=== PATIENT | female | born 1975 | race Caucasian/White ===

== ENCOUNTER → 2022-08-07 12:17 | Outpatient (CLI) | payer SELFPAY ==
--- NOTE | ~2022-08-07 | MMUS_ITS ---
EXAMINATION: MM diagnostic yelitza BI w gabriel, US breast BI complete HISTORY: Increasing size of left breast lump, previously reported as a cyst according to patient TECHNIQUE: Bilateral ML, MLO, CC and rotated lateral CC 3-D tomosynthesis images were performed and s ynthetic 2-D images were generated. CAD analysis was submitted and interpreted. High resolution bilat eral complete breast ultrasound examination including all 4 quadrants and subareolar areas was perfor med. COMPARISON: None BREAST PARENCHYMAL COMPOSITION: The breasts are extremely dense, which lowers the sensitivity of mamm ography. FINDINGS: MAMMOGRAPHIC FINDINGS: Multiple bilateral breast masses are noted, the largest situated in the posterior upper outer left br east, measuring at least 4 cm, with halo sign, likely a benign cyst. Remaining masses appear low-dens ity and circumscribed, suggesting multiple bilateral benign lesions, likely cysts or other benign pro cess(es). The very dense stroma may obscure masses. Bilateral complete breast ultrasound examination was perfor med. No architectural distortion, malignant calcification, skin thickening or retraction of either breast is detected. ULTRASOUND: There are multiple bilateral simple and septated cysts. The largest on the right is situated at 2:00, measuring approximately 11 x 16 x 18 mm, with numerous septations, with through transmission and pos terior enhancement, no internal vascularity. The largest on the left situated at 2:00 6 cm from nipple, corresponding to the large density with [place] sign on the mammogram, measuring up to 3.4 x 4.5 cm, with through transmission posterior enhanceme nt. Multiple additional scattered simple and septated cysts of the left breast are noted. No suspicious mass or shadowing of either breast is evident. IMPRESSION: 1. Benign findings; no mammographic or sonographic evidence of malignancy 2. Routine annual mammographic screening is recommended BI-RADS Category 2: Benign finding(s). Reviewed, dictated and finalized at location A. ETIC RESONANCE IMAGING DIRECTOR IMPRESSION: 1. Benign findings; no mammographic or sonographic evidence of malignancy 2. Routine annual mammographic screening is recommended BI-RADS Category 2: Benign finding(s).
== END ==
PROVIDERS: PCP Obstetrics & Gynecology; Visit Provider Obstetrics & Gynecology
DX: N63.21 Unspecified lump in the left breast, upper outer quadrant (principal); N60.02 Solitary cyst of left breast
CPT/HCPCS: 76641; 77062; 77066; G0279

== ENCOUNTER 2025-01-15 08:32 | Emergency (ER) | payer SELFPAY ==
--- OUTSIDE RECORDS SUMMARY | 2025-01-15 08:37 | XMS_ITS | Clinical Summary ---
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 Gender Identity Not on file Sexual Orientation Not on file Plan of Treatment Health Maintenance Due Date Last Done Comments DTAP/TDAP/TD VACCINES (1 - Tdap) 1996 HEPATITIS B VACCINES (1 of 3 - 19+ 3-dose series) 02/24 HPV/Cotest (21-29) 1998 CERVICAL CANCER SCREENING 2007 HPV/Cotest (30-65) 2007 PAP SMEAR 2007 BREAST CANCER SCREENING 2017 02/09/2014 COLORECTAL SCREENING 2022 Colorectal Cancer Screening 2022 FIT-DNA Q 3 years 2022 FIT/FOBT Q 1 year 2022 Flex Sig/CT Colonography Q 5 years 2022 INFLUENZA VACCINE (#1) 2025 Procedures Procedure Name Priority Date/Time Associated Diagnosis Comments MAMMO DIAGNOSTIC BILATERAL W OR WO CAD Routine 02/09/2014 7:46 AM CDT Galactorrhea not associated with childbirth from Last 3 Months or Most Recently Relevant to Health Maintenance Results * MAMMO DIGITAL DIAG BILAT (02/09/2014 7:46 AM CDT) Anatomical Region Laterality Modality Breast Bilateral Mammography 02/09/2014 7:36 AM CDT Impressions 02/09/2014 11:45 AM CDT IMPRESSION: Right breast: MQSA: Benign findings BI-RADS: 2 Left breast: MQSA: Benign findings BI-RADS: 2 Multiple cysts seen on ultrasound. Extremely dense and nodular bilateral breast parenchyma which limits the sensitivity of the exam to detect abnormality. Clinical followup recommended. Palpable abnormality should be followed on the basis of clinical grounds. Narrative 02/09/2014 11:45 AM CDT SCREENING DIGITAL DIAGNOSTIC BILATERAL MAMMOGRAM WITH CAD ASSISTANCE LEFT BREAST ULTRASOUND HISTORY: Left breast tenderness 4-5 months. Occasional whitish nipple discharge that has decreased after treatment. FINDINGS: Bilateral breast CC, MLO and lateromedial views obtained and compared to previous mammogram on 08/21/2012 read by different radiologist. Extremely dense and nodular bilateral breast parenchyma is noted which limits the sensitivity of the exam to detect abnormality. There is no new dominant mass or architectural distortion. There is no tumoral microcalcification. Left axillary lymph nodes are again seen. There is no skin thickening or nipple retraction. Left breast ultrasound is recommended for further elevation of symptoms. LEFT BREAST ULTRASOUND Left breast ultrasound is performed in clockwise rotation. I was present during ultrasound examination. There is dense breast parenchyma. Multiple small cysts are seen measuring 3 x 3 x 4 mm at 1 o'clock, 3 x 2 x 3 mm at 2 o'clock, 6 x 3 x 4 mm at 3 o'clock, 5 x 2 x 4 mm at 6 o'clock, 7 x 5 x 9 mm at 9 o'clock, 12 x 7 x 20 mm 2 o'clock. The small cysts have increased through transmission and no internal blood flow. I personally examined the hypoechoic structures at 9 o'clock and 2 o'clock and demonstrate increased through transmission, no internal blood flow and are most consistent with cysts and possibly with mild debris. Procedure Note Bakari Mena MD - 02/09/2014 SCREENING DIGITAL DIAGNOSTIC BILATERAL MAMMOGRAM WITH CAD ASSISTANCE LEFT BREAST ULTRASOUND HISTORY: Left breast tenderness 4-5 months. Occasional whitish nipple discharge that has decreased after treatment. FINDINGS: Bilateral breast CC, MLO and lateromedial views obtained and compared to previous mammogram on 08/21/2012 read by different radiologist. Extremely dense and nodular bilateral breast parenchyma is noted which limits the sensitivity of the exam to detect abnormality. There is no new dominant mass or architectural distortion. There is no tumoral microcalcification. Left axillary lymph nodes are again seen. There is no skin thickening or nipple retraction. Left breast ultrasound is recommended for further elevation of symptoms. LEFT BREAST ULTRASOUND Left breast ultrasound is performed in clockwise rotation. I was present during ultrasound examination. There is dense breast parenchyma. Multiple small cysts are seen measuring 3 x 3 x 4 mm at 1 o'clock, 3 x 2 x 3 mm at 2 o'clock, 6 x 3 x 4 mm at 3 o'clock, 5 x 2 x 4 mm at 6 o'clock, 7 x 5 x 9 mm at 9 o'clock, 12 x 7 x 20 mm 2 o'clock. The small cysts have increased through transmission and no internal blood flow. I personally examined the hypoechoic structures at 9 o'clock and 2 o'clock and demonstrate increased through transmission, no internal blood flow and are most consistent with cysts and possibly with mild debris. IMPRESSION IMPRESSION: Right breast: MQSA: Benign findings BI-RADS: 2 Left breast: MQSA: Benign findings BI-RADS: 2 Multiple cysts seen on ultrasound. Extremely dense and nodular bilateral breast parenchyma which limits the sensitivity of the exam to detect abnormality. Clinical followup recommended. Palpable abnormality should be followed on the basis of clinical grounds. us Arnold Wilks MD MAMMO ORDERABLES Final Resul t from Last 3 Months or Most Recently Relevant to Health Maintenance Insurance [id number] Care Teams It Operations Analyst Relationship Specialty Start Date End Date Joseluis Denis DO [address] [address] PCP - General 07/17/13
--- OUTSIDE RECORDS SUMMARY | 2025-01-15 08:39 | XMS_ITS | Clinical Summary ---
Author Organization [facility] Address [address] [place] [id number] Care Team Providers Care Wire Weaving Loom Setter Name Role Phone Veronica Doshi Primary Care Provider [phone] [phone] Allergies No known active allergies Medications No known medications Active Problems Problem Noted Date Diagnosed Date Fibromyalgia 08/12/2019 IBS (irritable bowel syndrome) 08/12/2019 Family History Medical History Relation Comments Allergies Brother No Known Problems Father Breast Cancer Maternal Aunt Hypertension Mother Uterine Cancer Paternal Aunt Relation Status Comments Brother Alive Father Alive Maternal Aunt Alive Mother Alive Paternal Aunt Social History Tobacco Use Types Packs/Day Years Used Date Smoking Tobacco: Never Smokeless Tobacco: Never Alcohol Use Standard Drinks/Week Comments Not Currently 0 (1 standard drink = 0.6 oz pur e alcohol) PHQ-2 Answer Date Recorded PHQ-2 Score 1 08/12/2019 Comments No Sex and Gender Information Value Date Recorded Sex Assigned at Not on file Legal Sex Female 11:45 AM NATIONAL VAN OWNER OPERATOR Gender Identity Not on file Sexual Orientation Not on file Last Filed Vital Signs Vital Sign Reading Time Taken Comments Blood Pressure 122/75 08/12/2019 11:11 AM NATIONAL VAN OWNER OPERATOR Pulse 79 08/12/2019 11:11 AM NATIONAL VAN OWNER OPERATOR Temperature - - Respiratory Rate 19 08/12/2019 11:11 AM NATIONAL VAN OWNER OPERATOR Oxygen Saturation 100% 08/12/2019 11:11 AM NATIONAL VAN OWNER OPERATOR Inhaled Oxygen Concentration - - Weight 57 kg (125 lb 11.2 oz) 08/12/2019 11:11 A M NATIONAL VAN OWNER OPERATOR Height 160 cm (5' 3) 08/12/2019 11:11 AM NATIONAL VAN OWNER OPERATOR Body Mass Index 22.27 08/12/2019 11:11 AM NATIONAL VAN OWNER OPERATOR Plan of Treatment Health Maintenance Due Date Last Done Comments Cervical Cancer Screening Pa p Smear (Age 30 to 64) Every 3 Years 1977 Colorectal Cancer Screening Colonoscopy (10 Years) 1977 Hepatitis C 1995 DTaP, Tdap and Td Vaccines ( 1 - Tdap) 1996 Hepatitis B Vaccines (1 of 3 - 19+ 3-dose series) 1996 Cervical Cancer Screening Pa p with HPV Testing (Age 30 to 64) Every 5 Years 2007 Cervical Cancer Screening with HPV 2007 Mammogram Screening 2017 Annual Physical 08/12/2020 08/12/2019 COVID-19 Vaccine ( - 2023-2 5 season) 2024 Meningococcal B Vaccine Aged Out No l onger eligible based on patient's age to complete this topic Meningococcal Vaccine Aged Out No lisa silvestre eligible based on patient's age to complete this topic Pneumococcal Vaccine: Pediat rics (0 to 5 Years) and At-Risk Patients (6 to 49 Years) Aged Out No longer eligi ble based on patient's age to complete this topic RSV Immunizations Under 20 Months Aged Out No longer eligible based on patient's age to complete this topic Care Teams Wire Weaving Loom Setter Relationship Specialty Start Date End Date Veronica Doshi APNP [address] [place] [address] PCP - General NURSE PRACTITIONER 08/12/19
[2025-01-15 08:40] VITALS: BP 116/83; PULSE 86; RESP 18; TEMP 37.1; O2SAT 100
--- NOTE | 2025-01-15 08:55 | ED_ITS ---
HPI - URI/Sore Throat General Chief Complaint: Upper Respiratory Infection Stated Complaint: strep Time Seen by Provider: 01/15/25 08:40 Source: patient Mode of arrival: ambulatory Limitations: no limitations History of Present Illness HPI Narrative: Padma is a 49-year-old female patient presenting to the clinic today with complaints of sore throat, slight runny nose, and cough x1 day. Symptoms started 11:00 a.m. yesterday. Has been at a conference out of town and has flown back and forth on a plane. She denies any fevers, chills, body aches. No shortness of breath or chest pain. Has taken Advil for her symptoms. Related Data Home Medications ?Medication ?Instructions ?Recorded ?Confirmed ?Last Taken ?Type No Home Medications 08/23/22 10/16/22 Unknown History Allergies Allergy/AdvReac Type Severity Reaction Status Date / Time No Known Allergies Allergy Verified 10/16/22 09:44 Review of Systems Review of Systems: Pertinent positives per HPI. Patient denies any fever, chills, rash, headache, visual changes, dizziness, shortness of breath, chest pain, palpitations, nausea, vomiting, diarrhea, constipation, abdominal pain, or any urinary issues. [facility] Past Medical History Medical History IBS (irritable bowel syndrome) Breast lump Surgical History Surgical History H/O breast biopsy Breast Excision/Biopsy/Aspiration 08/29/2022 History of gynecologic surgery 04/2013 dx Laparoscopic 2001 D&C missed AB Family History Family History Grandparent Family history of cardiovascular disease Family history of lung cancer Acute myocardial infarction Other Breast cancer Other Family history of malignant neoplasm of breast Social History Social History Smoking status: Never smoker Alcohol intake: never Substance use: never Living arrangements: with family Additional living arrangements comments: and children Occupation/Education: occupation 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 There is no relevant family history pertinent to the patient complaint. Exam Narrative: General: Well-developed, well nourished, in no apparent distress Head: Normocephalic, atraumatic Eyes: Pupils equally round and reactive to light bilaterally, EOM intact, sclera and conjunctive clear, no discharge, lids normal Ears: TMs intact and congested, ear canals clear, no drainage, grossly hearing normal. Nose: Nares patent, clear nasal discharge, no inflammation, no sinus tenderness. Mouth: Oral pharynx red without lesions or masses, good dentition, MMM. Postnasal drip Neck: Supple, trachea midline, no enlargement of anterior or posterior cervical nodes, no thyroid masses or goiter palpable. Cardio: Regular rate and rhythm, s1 and s2 normal, no murmur appreciated. Resp: Clear to auscultation bilaterally, no rhonchi, rales, wheezing or rubs Course Course Emergency Course: Portions of this record may have been created with voice recognition software. Level of Care: Express Care Visit Vital Signs Vital signs: Vital Signs Temperature 37.1 C 01/15/25 08:40 Pulse Rate 86 01/15/25 08:40 Respiratory Rate 18 01/15/25 08:40 Blood Pressure 116/83 01/15/25 08:40 Pulse Oximetry 100 01/15/25 08:40 Oxygen Delivery Room Air 01/15/25 08:40 Temperature 37.1 C 01/15/25 08:40 Pulse Rate 86 01/15/25 08:40 Respiratory Rate 18 01/15/25 08:40 Blood Pressure 116/83 01/15/25 08:40 Pulse Oximetry 100 01/15/25 08:40 Oxygen Delivery Room Air 01/15/25 08:40 Vital signs reviewed MDM - URI/Sore Throat MDM Narrative Medical decision making narrative: At the time of visit patient is resting comfortably on the exam table. Patient appears to be nontoxic. Complaints of sore throat, slight runny nose, and cough x1 day. Has been at a conference out of town and has flown back and forth on a plane. Denies any chest pain, shortness breath, fevers, chills, body aches. Is concerned about strep. No known sick contacts. Labs: COVID, influenza, and strep test were performed. All testing was negative. We will send strep for culture. Plan: I suspect patient has URI/pharyngitis. Supportive measures were discussed with the patient and they voiced understanding discharge instructions and agrees to treatment plan. Return precautions reviewed Differential Diagnosis Differential diagnosis: Likely upper respiratory infection, otitis media, sinusitis, viral infection, bronchitis, influenza, pharyngitis and other (COVID) Lab Data Labs: Lab Results 01/15/25 Range/Units 09:02 POC Influenza A Ag Negative (Negative) POC Influenza B Ag Negative (Negative) POC SARS CoV-2 Ag Negative (Negative) POC Grp A Strep Screen Negative (Negative) Discharge Plan Discharge Clinical Impression: URI (upper respiratory infection) Qualifiers: URI type: unspecified URI Qualified Code(s): J06.9 - Acute upper respiratory infection, unspecified Pharyngitis Qualifiers: Pharyngitis/tonsillitis etiology: unspecified etiology Qualified Code(s): J02.9 - Acute pharyngitis, unspecified Patient Disposition: Home Condition: Stable Instructions: Antibiotic Form, Pharyngitis (ED), Cold Symptoms (ED) Additional Instructions: Strep test was negative in the clinic today. We will send strep for culture if this comes back positive we will contact you in place you on antibiotics at that time. COVID and influenza testing was negative in the clinic today Increase fluids and stay well hydrated Tylenol/motrin for pain/fever May take Flonase 1 spray in each near daily and OTC antihistamines such as Zyrtec or Claritin 10 mg daily as directed Vicks vapor rub to open sinuses Sinus rinses for congestion Cepacol spray, cough drops, throat lozenges, warm tea with honey/lemon, gargle salt water to soothe throat Go to the ED if you develop a worsening in your condition- high fever not controlled by Tylenol or Motrin, dehydration, weakness, lethargy, shortness of breath, or chest pain. Follow up with your PCP in 3-5 days if symptoms persist. Patient Language: Sierra Leonean Prescriptions: No Action No Home Medications Follow-up/Referrals: PHYSICIAN,CERTIFIED HYPERBARIC TECHNOLOGIST [Primary Care Provider] - Time of Disposition: 09:05 Quality [facility] Nursing Documentation ED [facility] nursing documentation: reviewed/agree
[2025-01-15 09:03] LABS: EDCOVIDSCREEN Negative (Negative); EDINFLUASCREEN Negative (Negative); EDINFLUBSCREEN Negative (Negative)
[2025-01-15 09:05] LABS: EDSTREPNEGPOS1 Negative (Negative)
== END 2025-01-15 09:15 | disposition home or self-care (01) ==
PROVIDERS: Emergency Provider Nurse Practitioner Family; Referring Provider Family Medicine
DX: J06.9 Acute upper respiratory infection, unspecified (principal); J02.9 Acute pharyngitis, unspecified; Z20.822 Contact with and (suspected) exposure to COVID-19
CPT/HCPCS: 87081; 87426; 87804; 87880; 99212; 99213; G0463

== ENCOUNTER 2025-04-28 08:44 | Outpatient (CLI) | payer SELFPAY ==
--- OUTSIDE RECORDS SUMMARY | 2025-04-28 09:21 | XMS_ITS | Clinical Summary ---
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
[2025-04-28 09:54] LABS: Hematocrit 36.2 % (37.0-47.0); Hemoglobin 11.8 g/dL (12.0-15.0); Immature Granulocyte Percent A 0.3 % (0-0.5); Lymphocytes Absolute Auto 1.72 K/mm3 (0.9-3.2); Mean Corpuscular HGB Conc 32.6 g/dl (32-36); Mean Corpuscular Hemoglobin 29.9 pg (26-34); Mean Corpuscular Volume 91.9 fl (80-100); Nucleated Red Blood Cells Absolute Auto 0.000 K/mm3 (0.0-0.012); Nucleated Red Blood Cells Perc 0.0 % (0.0-0.2); Platelet Count Result 312 k/mm3 (150-375); Red Blood Count 3.94 M/mm3 (4.2-5.4); White Blood Count 6.6 K/mm3 (4.5-10.0)
[2025-04-28 10:51] LABS: Beta HCG Quantitative < 2.39 mIU/ML
[2025-04-28 10:58] LABS: Iron 104 ug/dL (37-170)
[2025-04-28 11:07] LABS: Percent Iron Saturation 30 % (20-50)
[2025-04-28 11:35] LABS: Thyroid Stimulating Hormone Reflex 2.510 uIU/mL (0.465-4.68)
[2025-04-28 11:40] LABS: Ferritin 14.90 ng/mL (6.24-137)
[2025-04-29 08:09] LABS: FSH 6.7 mIU/mL (.)
[2025-04-29 11:09] LABS: LH 17.1 mIU/mL (.)
[2025-05-01 16:08] LABS: Estradiol, Sensitive 195.2 pg/mL (.)
== END 2025-04-28 08:45 | disposition home or self-care (01) ==
LOC: ANHLAB 08:45
PROVIDERS: Visit Provider Obstetrics & Gynecology
DX: N93.9 Abnormal uterine and vaginal bleeding, unspecified (principal)
CPT/HCPCS: 36415; 82670; 82728; 83001; 83002; 83540; 83550; 84144; 84443; 84702; 85025

== ENCOUNTER 2025-05-26 02:51 | Day surgery (SDC) | payer SELFPAY ==
--- NOTE | 2025-05-11 13:40 | PC.NURSE ---
[facility] has started construction of its new state of the art ER which will open Spring 2026. With this, we anticipate parking may be a challenge for some our surgical patients and families. Parking spaces are limited but are available for all Surgical, obstetrics, and ER patients sharing this lot. If you arrive and find you are having a hard time finding a parking space, please note that we understand the challenges, please drive around the hospital and park near Hospital Entrance 1. When you enter this entrance, you can ask a volunteer to direct or take you back to the surgical waiting area to check in. We appreciate everyone?s understanding of these expected challenges while we build for your future. Report to the Outpatient Waiting Room, entrance under the green pavilion located off [address], at time _8:45 AM on date __05/26/25 . Planned Procedure Time: _10:45 AM .? Time changes happen often and if your time is changed the preop area will call you the afternoon before. - You and your visitor will be asked to self-screen and do not enter if you have any COVID symptoms. Please call surgeon if you need to reschedule. - A mask is optional within the hospital at this time. Patients may have clear liquids (water, carbonated beverages, clear teas, apple juice) until 3 hours prior to surgery( 7:45AM) with a maximum of 20 ounces. - No food from midnight until time of surgery and no smoking, or chewing tobacco (or any form of nicotine). No chewing gum, candy or mints. Take only the following medications with a SIP of water on the morning of surgery: NONE DO NOT STOP ANY OF YOUR OTHER PRESCRIPTION MEDICATIONS PRIOR TO SURGERY EXCEPT THE FOLLOWING Hold all vitamins and supplements for 3 days per anesthesiologist.LAST DOSE 05/22/25 Medications to discontinue per physician NONE Date to take last dose Please no make-up, nail northern irish, hairspray, perfume, deodorant, or body powder the day of surgery.? No jewelry (including any body piercings) or valuables the day of surgery, leave them at home.? Please take a shower or bath the night before, or the morning of, surgery with an antibacterial soap.? Wear comfortable, loose fitting clothing.? Children are encouraged to wear pajamas. - Jewelry must be removed prior to entering the operating room.? Rings and piercings that are not removed may be cut off. - The hospital will not accept responsibility for valuables.? - Please leave all valuables, including medications, at home the day of surgery. If you are going home after surgery, a licensed straight truck driver must drive you home.? - NO public transportation without another adult if you receive anesthesia. - We recommend that an adult stay with you for 24 hours following discharge. - We also recommend that you do not drive, make important decision, drink alcoholic beverages, or take any drugs that were not prescribed by your health care provider for at least 24 hours after your discharge time. For Pediatric surgeries, we recommend two adults accompany the child home. Follow any additional instructions given to you from your surgeon. Telephone instructions given to __PATIENT and asked if any additional questions and then verbalized understanding. Patient advised to call surgeon office or pre surgery nurse liaison [phone] if any additional questions.
[2025-05-11 13:51] VITALS: BMI 25.6
--- NOTE | 2025-05-25 15:55 | PM.IMHP2 ---
H&P: HPI History of Present Illness Date/Time: 05/25/25 15:55 50 old female presents for evaluation of irregular bleeding. Bleeding has been increasing and is now fairly consistent and flow 5-7 days her menstrual cycles and heavier than had been previously. Ultrasound revealed thickened endometrium and likely 1.6cm endometrial polyp. Chief Complaint: Vaginal bleeding Review of Systems Review of Systems: All systems reviewed & are unremarkable except as noted in HPI and below PMFSH Past Medical History Medical History IBS (irritable bowel syndrome) Breast lump Surgical History Surgical History H/O breast biopsy Breast Excision/Biopsy/Aspiration 08/29/2022 History of gynecologic surgery 04/2013 dx Laparoscopic 2001 D&C missed AB Family History Family History Grandparent Family history of cardiovascular disease Family history of lung cancer Acute myocardial infarction Other Breast cancer Other Family history of malignant neoplasm of breast Social History Social History Smoking status: Never smoker Alcohol intake: never Substance use: never Living arrangements: with family Additional living arrangements comments: and children Occupation/Education: occupation 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 Gender identity (if verbalized by the patient): Female Sexual Orientation (if Verbalized by the Patient): Straight or Heterosexual Spiritual care concerns: No Meds Home Medications and Allergies Home Medications ?Medication ?Instructions ?Recorded ?Confirmed ?Type No Home Medications 08/23/22 05/11/25 History Allergies Allergy/AdvReac Type Severity Reaction Status Date / Time No Known Allergies Allergy Verified 05/11/25 13:37 Exam Const: General: cooperative and healthy appearing Resp: Effort & Inspection: normal respiratory effort Auscultation: clear to auscultation bilaterally Cardio: Rate: regular rate Rhythm: regular rhythm GI: Inspection: normal to inspection Auscultation: normal bowel sounds : External Female Exam: normal external appearance Speculum Exam - Vagina: normal appearance of the vagina Speculum Exam - Cervix: normal appearance of the cervix Bimanual exam- vagina & uterus: enlarged ( 8-10 week size) Bimanual Exam- Adnexa, other: normal adnexae Assessment and Plan Assessment and plan (1) Abnormal uterine bleeding (AUB): Code(s): N93.9 - Abnormal uterine and vaginal bleeding, unspecified Status: Acute (2) Endometrial polyp: Code(s): N84.0 - Polyp of corpus uteri Status: Acute Plan proceed with hysteroscopy and uterine curettings
--- OUTSIDE RECORDS SUMMARY | 2025-05-26 02:52 | XMS_ITS | Clinical Summary ---
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
--- OUTSIDE RECORDS SUMMARY | 2025-05-26 02:52 | XMS_ITS | Clinical Summary ---
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 Gender Identity Not on file Sexual Orientation Not on file Last Filed Vital Signs Vital Sign Reading Time Taken Comments Blood Pressure 122/75 08/12/2019 11:11 AM ACCOUNTS RECEIVABLE CLERK Pulse 79 08/12/2019 11:11 AM ACCOUNTS RECEIVABLE CLERK Temperature - - Respiratory Rate 19 08/12/2019 11:11 AM ACCOUNTS RECEIVABLE CLERK Oxygen Saturation 100% 08/12/2019 11:11 AM ACCOUNTS RECEIVABLE CLERK Inhaled Oxygen Concentration - - Weight 57 kg (125 lb 11.2 oz) 08/12/2019 11:11 A M ACCOUNTS RECEIVABLE CLERK Height 160 cm (5' 3) 08/12/2019 11:11 AM ACCOUNTS RECEIVABLE CLERK Body Mass Index 22.27 08/12/2019 11:11 AM ACCOUNTS RECEIVABLE CLERK Plan of Treatment Health Maintenance Due Date [...] Physical 08/12/2020 08/12/2019 COVID-19 Vaccine ( - 2024-2 6 season) 2025 Influenza Adult (#1) 2025 Hepatitis A Vaccines Aged Out No long er eligible based on patient's age to complete this topic Meningococcal B Vaccine Aged Out No l [...] age to complete this topic Care Teams Technical Rep Relationship Specialty Start Date End Date Veronica Doshi APNP [address] [place] [id number] PCP - General NURSE PRACTITIONER 08/12/19
--- NOTE | 2025-05-26 07:22 | WPDHPUPDATE1 ---
History and Physical Update Update Date/Time: 05/26/25 07:22 History and Physical has been reviewed, including an updated exam of the patient. There are NO changes in the patient's condition. Risks, benefits, and alternatives have been discussed and questions answered. Patient agrees to proceed with procedure.
[2025-05-26 09:05] VITALS: BP 108/62; PULSE 76; RESP 18; TEMP 36.6; O2SAT 100; BMI 25.9
[2025-05-26] MEDS: SCOPOLAMINE 1 MG PATCH 1 PATCH TRANSDERM (09:40)
[2025-05-26] MEDS: ACETAMINOPHEN 500 MG TABLET 1000 MG PO (09:40)
[2025-05-26] MEDS: LACTATED RINGERS 1,000 ML 30 ML IV CONT (09:40)
--- NOTE | 2025-05-26 09:43 | P.PNAN_ITS ---
Anes - Initial Pre Proc Eval Procedure: Operation Date: 05/26/25 10:45 Proposed Procedures p Hysteroscopy Dilation and Curettage with Polypectomy - Lico Mari MD Date/Time: 05/26/25 09:43 Surgeon: Lico Mari MD Pre Op Diagnosis: Abnormal Uterine Bleeding Patient Data Age: 50 Gender: F Height: 1.57 m Weight: 63.6 kg Allergies Allergy/AdvReac Type Severity Reaction Status Date / Time No Known Allergies Allergy Verified 05/11/25 13:37 Home Medications ?Medication ?Instructions ?Recorded ?Confirmed ?Type No Home Medications 08/23/22 05/11/25 H istory Patient hx anesthesia problems: post op nausea/vomiting Family hx anesthesia problems: none Results Review: All pre-operative results and documents have been reviewed as part of the pre- operative evaluation. [facility] Past Medical History Medical History IBS (irritable bowel syndrome) Breast lump Surgical History Surgical History H/O breast biopsy Breast Excision/Biopsy/Aspiration 08/29/2022 History of gynecologic surgery 04/2013 dx Laparoscopic 2001 D&C missed AB Family History Family History Grandparent Family history of cardiovascular disease Family history of lung cancer Acute myocardial infarction Other Breast cancer Other Family history of malignant neoplasm of breast Social History Social History Smoking status: Never smoker Alcohol intake: never Substance use: never Living arrangements: with family Additional living arrangements comments: and children Occupation/Education: occupation 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 Gender identity (if verbalized by the patient): Female Sexual Orientation (if Verbalized by the Patient): Straight or Heterosexual Spiritual care concerns: No Anes - Eval Final PreProcedure Day of Procedure 05/26/25 09:43 Patient weight: normal Heart: regular rate and rhythm Lungs: clear to auscultation Airway: Mallampati scale class II Neurological: alert and oriented Last oral intake: >/= 8 hours ASA classification: II Emergent: no Anesthetic plan: proceed Anesthesia type and monitoring: general GIVS and standard monitoring Results Review: All pre-operative results and documents have been reviewed as part of the pre- operative evaluation. Informed Consent: The patient's anesthetic plan and its attendant risks and benefits were discussed with the patient/family/POA. Questions were solicited and answers provided to the satisfaction of the patient/family/POA.
--- NOTE | 2025-05-26 10:11 | S_PTH ---
PATIENT: Padma Valle LOC: [facility] U#:[id number] AGE/SX: 50/F ROOM: RE05/26/[address]: Lico Mari MD : 1975 BED: DIS: 05/26/2025 SPEC #: [id number] RECD: 05/26/25 11:27 STATUS: MESSI REOndina #: [id number] PARK: 05/26/25 10:[address]: Lico Mari DEPT: [facility] Surgical RECD BY: King Jarvis ENTERED: 05/26/25 11:27 SP TYPE: Surgical OTHR DR: BIOSTATISTICS DIRECTOR PHYSICIAN Tissues: A - Endometrial Curettings Procedures: Hematoxylin and Eosin Stain Gross and Microscopic Level 4
--- NOTE | 2025-05-26 10:14 | W.PM.PROC2 ---
Procedure Note - Detailed Date of Procedure 05/26/25 Pre-op Diagnosis Abnormal Uterine Bleeding Post-op Diagnosis Same Procedure Performed 1. Hysteroscopy 2. Polypectomy 3. Endometrial shavings Surgeon Lico Mari MD Anesthesia MAC Findings Thickened tissue throughout the endometrial cavity as well as large polyp noted Description of Procedure Patient prepped and draped in the usual manner for this procedure. Cervix was dilated to allow the hysteroscope to placed. Findings were noted as above and using the hysteroscopic shaver the polyp in all the thickened endometrial tissue was shaved and removed and at the end of the procedure a normal contour of the endometrial cavity was noted. Estimated Blood Loss 10 Drains No Packing No Pathology Yes Complications No immediate complications Condition Stable Disposition PACU [facility] Billing Surgery - Charge Forward: Surgery Billing
[2025-05-26] MEDS: KETOROLAC 30 MG/ML VIAL (*BKC) IV PUSH (10:17)
[2025-05-26 10:18] VITALS: BP 126/80; PULSE 64; RESP 14; O2SAT 100
[2025-05-26] MEDS: fentaNYL CITRATE INJ (*CRX) 100 MCG/2 ML VIAL 25 MCG IV PUSH ×2 (10:26→10:32)
[2025-05-26 10:45] VITALS: BP 103/55; PULSE 58; RESP 16; O2SAT 100
[2025-05-26] MEDS: oxyCODONE HCL (*CRX) 5 MG TAB IR PO (10:57)
[2025-05-26 11:15] VITALS: BP 106/58; PULSE 62; RESP 16
== END 2025-05-26 11:24 | disposition home or self-care (01) ==
PROVIDERS: Visit Provider Obstetrics & Gynecology
PROC: 0U5B8ZZ Destruction of Endometrium, Via Natural or Artificial Opening Endoscopic (ICD-10-PCS; CPT 58563; principal; 2025-05-26 10:45)
DX: N93.9 Abnormal uterine and vaginal bleeding, unspecified (principal); N84.0 Polyp of corpus uteri
CPT/HCPCS: 58558; 88305; A9270; J1100; J1885; J2003; J2250; J2405; J2704; J3010; J7120